=== PATIENT | female | born 1970 | race Caucasian/White ===

== ENCOUNTER 2023-12-28 13:45 | Emergency (ER) | payer MEDICAID, SELFPAY ==
[2023-12-28] VITALS (11 sets, daily range): BP systolic 102–118; BP diastolic 64–78; PULSE 76–100; RESP 9–20; O2SAT 97–100
--- NOTE | 2023-12-28 13:45 | RT.EKG_ITS ---
APPROVED REPORT Exam: Resting ECG Reason for Exam: chest pain Patient Location: E HR:86 bpm ECG Measurements Heart Rate 86 AXIS KS 112 P 74 QRSd 89 QRS 91 QT 373 T 81 QTc 447 Conclusion Sinus rhythm...normal P axis, V-rate 60- 99
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
[2023-12-28] MEDS: Lidocaine 5% Patch 1 PATCH TP (14:55)
--- NOTE | 2024-01-02 12:00 | NUR.NOTE ---
Access chart for information for the referral to [facility] of the day. Nursing Note:
--- NOTE | 2024-01-02 13:18 | NUR.NOTE ---
Called [facility] to notify them of the referral and to let them know that I faxed the CT report that had the incidental findings for the provider to review for the visit. Fax completed. Nursing Note:
== END 2023-12-28 15:21 | disposition home or self-care (01) ==
PROVIDERS: Emergency Provider Emergency Medicine
DX: S80.01XA Contusion of right knee, initial encounter (principal); S20.211A Contusion of right front wall of thorax, initial encounter; E10.9 Type 1 diabetes mellitus without complications; Z79.4 Long term (current) use of insulin; R91.1 Solitary pulmonary nodule
CPT/HCPCS: 71250; 73562; 93005; 99285; 93010; 99284

== ENCOUNTER 2024-08-12 18:18 | Outpatient (REF) | payer MEDICAID, SELFPAY ==
[2024-08-16 18:21] LABS: Calprotectin <50.0 mcg/g
== END 2024-08-12 18:19 | disposition home or self-care (01) ==
LOC: LBN 18:18
PROVIDERS: Visit Provider Internal Medicine Gastroenterology
DX: K50.918 Crohn's disease, unspecified, with other complication (principal)
CPT/HCPCS: 83993

== ENCOUNTER 2024-10-08 03:11 | Outpatient (CLI) | payer MEDICAID, SELFPAY ==
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
== END 2024-10-08 03:31 ==
LOC: DI 03:11
PROVIDERS: Visit Provider Neuromusculoskeletal Medicine & OMM
DX: R59.0 Localized enlarged lymph nodes (principal)
CPT/HCPCS: 76536

== ENCOUNTER 2024-10-24 02:35 | Outpatient (CLI) | payer MEDICAID, SELFPAY ==
[2024-10-24 07:40] LABS: Abs Immature Grans 0.01 10^3/uL (0.0-0.06); HCT 37.4 % (36.0-46.0); HGB 12.5 g/dL (11.2-15.7); Immature Grans % 0.3 %; MCH 32.5 pg (27.0-33.0); MCHC 33.4 % (32.0-36.0); MCV 97 fL (80-95); MPV 10.3 fL (8.0-11.0); Platelet Count 262 10^3/uL (130-400); RBC 3.85 10^6/uL (3.93-5.22); RDW 13.2 % (11.7-14.6); RDW-SD 47.0 fL; WBC 3.16 10^3/uL (4.4-10.8)
[2024-10-24 08:13] LABS: Folate 10.6 ng/mL (8.6-20.0)
[2024-10-24 08:25] LABS: Vitamin B12 660 pg/mL (193-986)
[2024-10-26 10:51] LABS: Copper, Serum 79 mcg/dL (77-206)
== END 2024-10-24 02:36 | disposition home or self-care (01) ==
LOC: LBO 02:36
PROVIDERS: Visit Provider Neuromusculoskeletal Medicine & OMM
DX: K50.918 Crohn's disease, unspecified, with other complication (principal); D70.9 Neutropenia, unspecified; R71.8 Other abnormality of red blood cells; K50.90 Crohn's disease, unspecified, without complications
CPT/HCPCS: 36415; 82525; 82607; 82746; 85025

== ENCOUNTER 2024-11-26 16:06 | Outpatient (REF) | payer MEDICARE, MEDICAID, SELFPAY | END 2024-11-26 16:07 | disposition home or self-care (01) | LOC: LBN 16:06 | PROVIDERS: Visit Provider Internal Medicine Gastroenterology | DX: K50.918 Crohn's disease, unspecified, with other complication (principal); R10.10 Upper abdominal pain, unspecified | CPT/HCPCS: 83993 ==

== ENCOUNTER 2025-02-06 10:35 | Outpatient (REF) | payer MEDICARE, MEDICAID, SELFPAY | END 2025-02-06 10:36 | disposition home or self-care (01) | LOC: LBN 10:35 | PROVIDERS: Visit Provider Internal Medicine Gastroenterology | DX: K52.9 Noninfective gastroenteritis and colitis, unspecified (principal) | CPT/HCPCS: 83993 ==

== ENCOUNTER 2025-03-21 23:04 | Outpatient (CLI) | payer MEDICARE, MEDICAID, SELFPAY ==
[2025-03-21 16:26] LABS: Abs Immature Grans 0.01 10^3/uL (0.0-0.06); HCT 35.7 % (36.0-46.0); HGB 11.7 g/dL (11.2-15.7); Immature Grans % 0.3 %; MCH 31.1 pg (27.0-33.0); MCHC 32.8 % (32.0-36.0); MCV 95 fL (80-95); MPV 10.2 fL (8.0-11.0); Platelet Count 242 10^3/uL (130-400); RBC 3.76 10^6/uL (3.93-5.22); RDW 12.9 % (11.7-14.6); RDW-SD 45.3 fL; WBC 3.21 10^3/uL (4.4-10.8)
[2025-03-21 16:41] LABS: ALT 25 U/L (10-49); AST 34 U/L (<34); Albumin 4.3 g/dL (3.2-5.0); Alkaline Phosphatase 41 U/L (46-116); Bilirubin, Direct 0.2 mg/dL (<=0.3); Bilirubin, Total 0.6 mg/dL (0.2-1.2); C-Reactive Protein < 0.50 mg/dL (<=0.50); Total Protein 6.8 g/dL (5.7-8.2)
== END 2025-03-21 23:05 | disposition home or self-care (01) ==
LOC: LBO 23:04
PROVIDERS: Visit Provider Internal Medicine Gastroenterology
DX: K50.918 Crohn's disease, unspecified, with other complication (principal); Z51.81 Encounter for therapeutic drug level monitoring
CPT/HCPCS: 36415; 80076; 85025; 86140